=== PATIENT | female | born 1990 | race Caucasian/White ===

== ENCOUNTER 2018-03-02 15:12 | Inpatient (IN) | payer OTHER ==
[~2018-03-02] VITALS: Ht 165.1 cm; Wt 79.4 kg
[~2018-03-02 15:12] MED LIST: CYCLOBENZAPRINE10 MG ORAL; IBUPROFEN600 MG ORAL
[2018-03-02 15:20] VITALS: BP 117/76
--- NOTE | 2018-03-02 15:45 | Emergency Room Report ---
History of Present Illness General Chief Complaint: Nausea, Vomiting, and Diarrhea Source: Patient Present Illness HPI The patient presents with uncontrolled vomiting since 4 AM. She is unable to keep down any water until just hour ago where she is able to keep down sips of water. She took 2 doses of Zofran at 10:00. She has muscle aches at this time. She she rates that pain at 9/10 whereas her abdomen is 6/10. She doesn' t believe this is related to her ulcerative colitis. She is due for a dose of Remicade on Saturday. This usually doesn't happen to her related to her ulcerative colitis. She's been passing watery diarrhea without any blood. She' s not vomiting any blood. The abdominal pain is crampy. LNMP normal. No fevers, chills. She denies any dysuria or discharge. She states her last period was normal slightly greater than 3 weeks ago. No recent travel, ill contacts (that she is aware of). Rapid heart rate she states due to treatment of depression and anxiety. Allergies: Coded Allergies: METOCLOPRAMIDE (Verified Allergy, Unknown, 07/15/16) PENICILLIN G (Verified Allergy, Unknown, 07/15/16) Patient History Past Medical History: see triage record Social History: Denies: smoking, alcohol use, drug use Social History Narrative employed Last Menstrual Period: 02/12 Now: No Reviewed Nursing Documentation: PMH: Agreed; PSxH: Agreed Nursing Documentation-PMH Past Medical History: No History, Except For Hx Gastrointestinal Problems: Yes - UC Review of Systems All Other Systems: negative except mentioned in HPI Physical Exam Vital Signs Date Time Temp Pulse Resp B/P (MAP) Pulse Ox O2 Delivery O2 Flow Rate FiO2 03/02/18 15:21 98.6 110 19 119/76 96 Room Air 98.6 Sp02 EP Interpretation: reviewed, normal General Appearance: well appearing, GCS 15, other - feels like she has to vomit Head: normocephalic Eyes: bilateral eye normal inspection ENT: moist mucus membranes Neck: supple Respiratory: lungs clear, normal breath sounds Cardiovascular #1: regular rate, rhythm, tachycardia Cardiovascular #2: 2+ radial (R) Gastrointestinal: normal inspection, normal bowel sounds, non tender, no mass, non-distended Musculoskeletal: back normal, gait/station normal, normal range of motion Neurologic: alert, oriented x3, grossly normal Psychiatric: anxious Skin: normal inspection, no rash, warm/dry Medical Decision Making Diagnostic Impression: Primary Impression: Nausea, vomiting, and diarrhea Additional Impressions: Gastroenteritis H/O ulcerative colitis Adverse reaction to compazine Tachycardia ER Course The patient presents with vomiting and muscle aches and diarrhea. She feels is not related to her ulcerative colitis. Differential includes exacerbation of colitis, gastroenteritis, viral syndrome, diverticulitis amongst others. We do need to exclude urinary tract infection. The patient will be evaluated with labs. No imaging is indicated at the moment. If she has leukocytosis we might need to perform imaging. She'll be treated with a dose of Zofran, Pepcid and also Toradol. Tachycardia suggests volume depletion. Still severe pain in body. States abdomen not with sig pain. No guard or rebound. Toradol repeated. Still tachycardic. Aggressive fluids IV. Still severe pain, morphine given. Pain greatly improved with morphine. Nausea return. Compazine given with Benadryl. Feels like dying with anxiety. Ativan given. Abdomen benign. Ativan repeated. Mom states she is "incoherent". Patient wants to go home. Discussed with friends and patient (she would have to go home with them). Uncertain of ability to observe. Admit med/observation Dr. Lebron. Laboratory Tests Test 03/02/18 15:44 03/02/18 16:34 White Blood Count 10.5 K/UL (4.8-10.8) Red Blood Count 4.49 M/UL (4.20-5.40) Hemoglobin 13.0 G/DL (12.0-16.0) Hematocrit 38.7 % (37.0-47.0) Mean Corpuscular Volume 86 FL (80-99) Mean Corpuscular Hemoglobin 29.0 PG (27.0-31.0) Mean Corpuscular Hemoglobin Concent 33.7 G/DL (32.0-36.0) Red Cell Distribution Width 10.5 % (11.6-14.8) L Platelet Count 307 K/UL (150-450) Mean Platelet Volume 7.1 FL (6.5-10.1) Neutrophils (%) (Auto) 91.1 % (45.0-75.0) H Lymphocytes (%) (Auto) 5.4 % (20.0-45.0) L Monocytes (%) (Auto) 2.8 % (1.0-10.0) Eosinophils (%) (Auto) 0.1 % (0.0-3.0) Basophils (%) (Auto) 0.6 % (0.0-2.0) Sodium Level 138 MMOL/L (136-145) Potassium Level 3.5 MMOL/L (3.5-5.1) Chloride Level 103 MMOL/L (98-107) Carbon Dioxide Level 25 MMOL/L (21-32) Anion Gap 10 mmol/L (5-15) Blood Urea Nitrogen 11 mg/dL (7-18) Creatinine 0.6 MG/DL (0.55-1.30) Estimate Glomerular Filtration Rate > 60 mL/min (>60) Glucose Level 104 MG/DL (74-106) Calcium Level 8.8 MG/DL (8.5-10.1) Total Bilirubin 0.5 MG/DL (0.2-1.0) Aspartate Amino Transferase (AST) 27 U/L (15-37) Alanine Aminotransferase (ALT) 57 U/L (12-78) Alkaline Phosphatase 87 U/L (46-116) Total Protein 7.7 G/DL (6.4-8.2) Albumin 3.9 G/DL (3.4-5.0) Globulin 3.8 g/dL Albumin/Globulin Ratio 1.0 (1.0-2.7) Lipase 129 U/L (73-393) Urine Color Pale yellow Urine Appearance Clear Urine pH 6 (4.5-8.0) Urine Specific [place] 1.010 (1.005-1.035) Urine Protein Negative (NEGATIVE) Urine Glucose (UA) Negative (NEGATIVE) Urine Ketones Negative (NEGATIVE) Urine Occult Blood Negative (NEGATIVE) Urine Nitrite Negative (NEGATIVE) Urine Bilirubin Negative (NEGATIVE) Urine Urobilinogen Normal MG/DL (0.0-1.0) Urine Leukocyte Esterase Negative (NEGATIVE) Urine HCG, Qualitative Negative (NEGATIVE) Rhythm Strip Diag. Results EP Interpretation: yes Rhythm: no PVC's, no ectopy, other - tachy Last Vital Signs Date Time Temp Pulse Resp B/P (MAP) Pulse Ox O2 Delivery O2 Flow Rate FiO2 03/02/18 23:50 98.0 112 18 118/78 98 Room Air 98.0 Status: improved Disposition: ADMITTED INPATIENT Condition: Serious Akshat Lyles M.D. March 02, 2018 15:45
[2018-03-02] MEDS ORDERED: Ketorolac 30mg Inj IV ONE ×2 (16:00→18:00)
[2018-03-02 16:01] LABS: HEMATOCRIT 38.7 % (37.0-47.0); MEAN CORPUSCULAR VOLUME 86 FL (80-99); PLATELET COUNT 307 K/UL (150-450); RED BLOOD COUNT 4.49 M/UL (4.20-5.40); RED CELL DISTRIBUTION WIDTH 10.5 % (11.6-14.8); WHITE BLOOD COUNT 10.5 K/UL (4.8-10.8)
[2018-03-02 16:02] LABS: BASOPHILS % (AUTO) 0.6 % (0.0-2.0); EOSINOPHILS % (AUTO) 0.1 % (0.0-3.0); LYMPHOCYTES % (AUTO) 5.4 % (20.0-45.0); MONOCYTES % (AUTO) 2.8 % (1.0-10.0); NEUTROPHILS % (AUTO) 91.1 % (45.0-75.0)
[2018-03-02 16:09] LABS: ANION GAP 10 mmol/L (5-15); BLOOD UREA NITROGEN 11 mg/dL (7-18); CALCIUM 8.8 MG/DL (8.5-10.1); CARBON DIOXIDE 25 MMOL/L (21-32); CHLORIDE 103 MMOL/L (98-107); CREATININE 0.6 MG/DL (0.55-1.30); POTASSIUM 3.5 MMOL/L (3.5-5.1); SODIUM 138 MMOL/L (136-145)
[2018-03-02 16:14] LABS: ALANINE AMINOTRANSFERASE 57 U/L (12-78); ALBUMIN 3.9 G/DL (3.4-5.0); ALKALINE PHOSPHATASE 87 U/L (46-116); ASPARTATE AMINO TRANSFERASE 27 U/L (15-37); BILIRUBIN,TOTAL 0.5 MG/DL (0.2-1.0)
[2018-03-02 16:39] LABS: APPEARANCE,URINE CLEAR; BILIRUBIN, URINE NEGATIVE (NEGATIVE); COLOR,URINE PALE YELLOW; GLUCOSE, URINE (UA) NEGATIVE (NEGATIVE); KETONES,URINE NEGATIVE (NEGATIVE); LEUKOCYTE ESTERASE ,URINE NEGATIVE (NEGATIVE); NITRITE,URINE NEGATIVE (NEGATIVE); PH,URINE 6 (4.5-8.0); PROTEIN,URINE NEGATIVE (NEGATIVE); UROBILINOGEN,URINE NORMAL MG/DL (0.0-1.0)
[2018-03-02] MEDS ORDERED: Morphine Sulfate 4mg/ml Inj IVP ONE (18:00)
[2018-03-02] MEDS ORDERED: DiphenhydrAMINE 50mg/ml Inj IVP ONE (18:45)
[2018-03-02] MEDS ORDERED: LORazepam Inj 2mg/ml 1ml IV ONE ×2 (19:45→20:45)
[2018-03-02 20:56] VITALS: BP 122/80
[2018-03-02] MEDS ORDERED: VENLAFAXINE HCL25 MG ORAL (22:13)
[2018-03-02] MEDS ORDERED: ZOFRAN4 M3 ORAL (22:13)
[2018-03-02] MEDS ORDERED: ZYRTEC10 MG ORAL (22:13)
[2018-03-02] MEDS ORDERED: LAMICTAL25 MG ORAL (22:13)
[2018-03-02 23:39] VITALS: BP 118/78
[2018-03-03] VITALS: BP 120/76
[2018-03-03] MEDS ORDERED: LORAZEPAM1 MG ORAL (01:28)
[2018-03-03] MEDS ORDERED: CLONAZEPAM1 M1 PO (01:30)
[2018-03-03] MEDS ORDERED: DICYCLOMINE HCL10 MG PO (01:35)
[2018-03-03] MEDS ORDERED: PROPRANOLOL HCL10 MG ORAL (01:37)
[2018-03-03] MEDS ORDERED: D5 1/2NS 1,000 ML IV SCH (03:04)
[2018-03-03] MEDS ORDERED: Mylanta II UD 30ml ORAL PRN (03:15)
[2018-03-03] MEDS ORDERED: Nitroglycerin Subl 0.4mg tab SL PRN (03:15)
[2018-03-03] MEDS ORDERED: Promethazine HCl 12.5 MG in NS 55 ML IV PRN (03:15)
[2018-03-03] MEDS ORDERED: LORazepam Inj 2mg/ml 1ml IV PRN (03:15)
[2018-03-03] MEDS ORDERED: Miralax 17gm pkt ORAL PRN (03:15)
[2018-03-03] MEDS ORDERED: Promethazine HCl 25 MG in NS 55 ML IV PRN (03:15)
[2018-03-03] MEDS ORDERED: Propranolol 10mg tab ORAL PRN (03:15)
[2018-03-03 04:00] VITALS: BP 130/73
[2018-03-03] MEDS ORDERED: Venlafaxine HCl 37.5mg Tab ORAL SCH ×2 (06:15→21:00)
[2018-03-03 08:00] VITALS: BP 125/75
[2018-03-03] MEDS ORDERED: Venlafaxine XR 37.5mg cap ORAL ONE (08:00)
[2018-03-03] MEDS: Cyclobenzaprine 10mg Tab ORAL SCH ×4 (08:24→13:08)
[2018-03-03] MEDS ORDERED: Heparin 5000 units/ml inj SUBQ SCH (09:00)
[2018-03-03] MEDS ORDERED: Pantoprazole Inj IV SCH (09:00)
[2018-03-03] MEDS ORDERED: D5 1/2NS 1000ml IV ONE (10:09)
--- NOTE | 2018-03-03 10:55 | GI Initial Consult Note ---
History of Present Illness General Date patient seen: March 03, 2018 Time patient seen: 10:49 Reason for Hospitalization: Nausea, Vomiting, and Diarrhea Referring physician: AMBAR MOHAMUD Reason for Consultation: ULCERATIVE COLITIS Present Illness HPI The patient presents with uncontrolled vomiting since 4 AM. She is unable to keep down any water until just hour ago where she is able to keep down sips of water. She took 2 doses of Zofran at 10:00. She has muscle aches at this time. She she rates that pain at 9/10 whereas her abdomen is 6/10. She doesn' t believe this is related to her ulcerative colitis. She is due for a dose of Remicade on Saturday. This usually doesn't happen to her related to her ulcerative colitis. She's been passing watery diarrhea without any blood. She' s not vomiting any blood. The abdominal pain is crampy. LNMP normal. No fevers, chills. She denies any dysuria or discharge. She states her last period was normal slightly greater than 3 weeks ago. No recent travel, ill contacts (that she is aware of). Rapid heart rate she states due to treatment of depression and anxiety. GI consulted for N/V/D r/o UC flare. Pt seen, awake A&Ox4 NAD with no active s /sx of N/V/D. Patient reports her symptoms have resolved, diet advanced this morning. Denies any abdominal pain. Patient has a history of Ulcerative colitis, where she takes Remicade infusions q8 weeks at [facility]. Her next dose was scheduled for today. Patient does not believe it was an Ulcerative Flare and wishes to be discharge today. Home Meds Active Scripts Cyclobenzaprine Hcl* (FLEXERIL*) 10 Mg Tablet, 10 MG ORAL THREE TIMES A DAY, # 12 TAB Prov:TERZIAN,NANI P.A. 07/15/16 Ibuprofen* (MOTRIN*) 600 Mg Tablet, 600 MG ORAL Q8H PRN for For Pain, #30 TAB 0 Refills Prov:TERZIAN,NANI P.A. 07/15/16 Reported Medications Propranolol Hcl* (INDERAL*) 10 Mg Tablet, 10 MG ORAL THREE TIMES A DAY PRN for For Anxiety, TAB 0 Refills 03/03/18 Dicyclomine Hcl* (DICYCLOMINE HCL*) 10 Mg Capsule, 10 MG PO Q8HR PRN for Abdominal cramps, CAP 03/03/18 Clonazepam (CLONAZEPAM) 1 Mg Tab.rapdis, 1 MG PO BEDTIME PRN for For Anxiety, TAB 03/03/18 Lorazepam* (LORAZEPAM*) 1 Mg Tablet, 1 MG ORAL BEDTIME PRN for For Anxiety, TAB 03/03/18 Cetirizine Hcl* (ZYRTEC*) 10 Mg Tablet, ORAL DAILY, #30 TAB 0 Refills 03/02/18 Ondansetron* (ZOFRAN*) 4 Mg Tablet, ORAL Q6H PRN for Nausea & Vomiting, TAB 03/02/18 Venlafaxine Hcl* (EFFEXOR*) 25 Mg Tablet, ORAL THREE TIMES A DAY, TAB 03/02/18 Lamotrigine* (LAMICTAL*) 25 Mg Tablet, ORAL DAILY, #30 TAB 0 Refills 03/02/18 Med list reviewed/reconciled: Yes Allergies: Coded Allergies: METOCLOPRAMIDE (Verified Allergy, Unknown, 07/15/16) PENICILLIN G (Verified Allergy, Unknown, 07/15/16) Patient History History Provided By: Patient PMH Narrative Past Medical History: see triage record Social History: Denies: smoking, alcohol use, drug use Social History Narrative employed Last Menstrual Period: 02/12 Now: No Reviewed Nursing Documentation: PMH: Agreed; PSxH: Agreed Nursing Documentation-PM Past Medical History: No History, Except For Hx Gastrointestinal Problems: Yes - Social History: Denies: smoking, alcohol use, drug use, other Review of Systems All Other Systems: negative except mentioned in HPI Physical Exam Vital Signs Date Time Temp Pulse Resp B/P (MAP) Pulse Ox O2 Delivery O2 Flow Rate FiO2 03/02/18 15:20 98.6 98 20 117/76 99 Room Air 98.6 Sp02 EP Interpretation: reviewed, normal Labs Laboratory Tests Test 03/02/18 15:44 03/02/18 16:34 White Blood Count 10.5 K/UL (4.8-10.8) Red Blood Count 4.49 M/UL (4.20-5.40) Hemoglobin 13.0 G/DL (12.0-16.0) Hematocrit 38.7 % (37.0-47.0) Mean Corpuscular Volume 86 FL (80-99) Mean Corpuscular Hemoglobin 29.0 PG (27.0-31.0) Mean Corpuscular Hemoglobin Concent 33.7 G/DL (32.0-36.0) Red Cell Distribution Width 10.5 % (11.6-14.8) L Platelet Count 307 K/UL (150-450) Mean Platelet Volume 7.1 FL (6.5-10.1) Neutrophils (%) (Auto) 91.1 % (45.0-75.0) H Lymphocytes (%) (Auto) 5.4 % (20.0-45.0) L Monocytes (%) (Auto) 2.8 % (1.0-10.0) Eosinophils (%) (Auto) 0.1 % (0.0-3.0) Basophils (%) (Auto) 0.6 % (0.0-2.0) Sodium Level 138 MMOL/L (136-145) Potassium Level 3.5 MMOL/L (3.5-5.1) Chloride Level 103 MMOL/L (98-107) Carbon Dioxide Level 25 MMOL/L (21-32) Anion Gap 10 mmol/L (5-15) Blood Urea Nitrogen 11 mg/dL (7-18) Creatinine 0.6 MG/DL (0.55-1.30) Estimat Glomerular Filtration Rate > 60 mL/min (>60) Glucose Level 104 MG/DL (74-106) Calcium Level 8.8 MG/DL (8.5-10.1) Total Bilirubin 0.5 MG/DL (0.2-1.0) Aspartate Amino Transf (AST/SGOT) 27 U/L (15-37) Alanine Aminotransferase (ALT/SGPT) 57 U/L (12-78) Alkaline Phosphatase 87 U/L (46-116) Total Protein 7.7 G/DL (6.4-8.2) Albumin 3.9 G/DL (3.4-5.0) Globulin 3.8 g/dL Albumin/Globulin Ratio 1.0 (1.0-2.7) Lipase 129 U/L (73-393) Urine Color Pale yellow Urine Appearance Clear Urine pH 6 (4.5-8.0) Urine Specific [place] 1.010 (1.005-1.035) Urine Protein Negative (NEGATIVE) Urine Glucose (UA) Negative (NEGATIVE) Urine Ketones Negative (NEGATIVE) Urine Occult Blood Negative (NEGATIVE) Urine Nitrite Negative (NEGATIVE) Urine Bilirubin Negative (NEGATIVE) Urine Urobilinogen Normal MG/DL (0.0-1.0) Urine Leukocyte Esterase Negative (NEGATIVE) Urine HCG, Qualitative Negative (NEGATIVE) General Appearance: well appearing, no apparent distress, alert Head: normocephalic EENT: PERRL/EOMI, normal ENT inspection Neck: supple Respiratory: normal breath sounds, no respiratory distress Cardiovascular: normal rate Gastrointestinal: normal inspection, non tender, soft, normal bowel sounds, non -distended Rectal: deferred Genitourinary: no CVA tenderness Musculoskeletal: normal inspection, back normal Neurologic: normal inspection, alert, oriented x3, responsive Psychiatric: normal inspection, judgement/insight normal, memory normal Skin: normal inspection, normal color, no rash, warm/dry, palpation normal, well hydrated Lymphatic: normal inspection, no adenopathy Current Medications Current Medications Medications (Trade) Dose Ordered Sig/Sammi Route PRN Reason Start Time Stop Time Status Last Admin Dose Admin Acetaminophen (Tylenol) 650 mg Q4H PRN ORAL fever 03/03/18 03:15 04/02/18 03:14 Al Hydroxide/Mg Hydroxide (Mylanta II) 30 ml Q6H PRN ORAL dyspepsia 03/03/18 03:15 04/02/18 03:14 Cyclobenzaprine HCl (Flexeril) 10 mg THREE TIMES A DAY ORAL 03/03/18 09:00 04/02/18 08:59 03/03/18 08:24 Dextrose (Dextrose 50%) STAT PRN IV Hypoglycemia 03/03/18 03:15 04/02/18 03:14 Dextrose/Sodium Chloride 1,000 ml @ 75 mls/hr [id number] IV 03/03/18 03:04 04/02/18 03:03 03/03/18 03:32 Diphenhydramine HCl (Benadryl) 25 mg Q6H PRN ORAL Itching/Pruritis 03/03/18 03:15 04/02/18 03:14 Heparin Sodium (Porcine) (Heparin 5000 units/ml) 5,000 units EVERY 12 HOURS SUBQ 03/03/18 09:00 04/02/18 08:59 03/03/18 08:23 Lamotrigine (LaMICtal) 25 mg DAILY ORAL 03/03/18 09:00 04/02/18 08:59 03/03/18 08:20 Lorazepam (Ativan 2mg/ml 1ml) 1 mg Q4H PRN IV agitation 03/03/18 03:15 03/10/18 03:14 Nitroglycerin (Ntg) 0.4 mg Q5M X 3 DOSES PRN SL Prn Chest Pain 03/03/18 03:15 04/02/18 03:14 Ondansetron HCl (Zofran) 4 mg Q6H PRN IVP Nausea & Vomiting 03/03/18 03:15 04/02/18 03:14 Pantoprazole (Protonix) 40 mg DAILY IV 03/03/18 09:00 04/02/18 08:59 03/03/18 08:23 Polyethylene Glycol (Miralax) 17 gm HSPRN PRN ORAL Constipation 03/03/18 03:15 04/02/18 03:14 Promethazine HCl 12.5 mg/Sodium Chloride 55.5 ml @ 110 mls/hr Q6H PRN IV Refractory N/V 03/03/18 03:15 04/02/18 03:14 Promethazine HCl 25 mg/Sodium Chloride 56 ml @ 110 mls/hr Q6H PRN IV Refractory N/V 03/03/18 03:15 04/02/18 03:14 Propranolol HCl (Inderal) 10 mg THREE TIMES A DAY PRN ORAL For Anxiety 03/03/18 03:15 04/02/18 03:14 Temazepam (Restoril) 15 mg HSPRN PRN ORAL Insomnia 03/03/18 03:15 03/10/18 03:14 Venlafaxine HCl (Effexor-XR) 112.5 mg BEDTIME ORAL 03/03/18 21:00 04/02/18 20:59 GI: Plan Problems: (1) Gastroenteritis (2) H/O ulcerative colitis (3) Nausea, vomiting, and diarrhea (4) Dehydration Plan advance to regular diet today, okay for DC per GI standpoint if tolerates diet most likely patient did not have an UC flare, will order CRP, ESR if still inpatient tomorrow. zofran prn pain mgmt electrolyte replacement patient to follow up with primary GI doctor at [facility] and reschedule Remicade infusion. d/w plan of care with patient fu labs Discussed with Dr. Black. Thank you for this patient referral, we will follow. Alejandra Guevara N.P. March 03, 2018 10:55
[2018-03-03 12:00] VITALS: BP 131/71
[2018-03-03] MEDS ORDERED: Venlafaxine XR 37.5mg cap ORAL SCH (21:00)
--- NOTE | 2018-03-03 22:30 | History and Physical Report ---
DATE OF ADMISSION: 03/02/2018 CONSULTANTS: 1. Doc Black M.D. 2. Vera Mo M.D. CHIEF COMPLAINT: Nausea and vomiting. BRIEF HISTORY: The patient is a 27-year-old female, who lives at home, presents with one-day of increased nausea and vomiting, diagnosed with acute gastroenteritis, admitted to medical floor for further treatment. Currently feeling better, ate okay, wants to go home. REVIEW OF SYSTEMS: No chest pain. No shortness of breath. Slight nausea and vomiting, but much improved now. No diarrhea. PAST MEDICAL HISTORY: Ulcerative colitis. PAST SURGICAL HISTORY: None. MEDICATIONS: Effexor, Flexeril, heparin, Protonix, Lamictal, Inderal, Tylenol, MiraLAX, Restoril, Zofran, and promethazine. ALLERGIES: Penicillin and Reglan. SOCIAL HISTORY: No smoking. No alcohol. No intravenous drug abuse. FAMILY HISTORY: Noncontributory. PHYSICAL EXAMINATION: GENERAL: Calm in bed, oriented x3, in no acute distress. VITAL SIGNS: Temperature is 97, pulse 107, respirations 18, and blood pressure 131/71. CARDIOVASCULAR: No murmurs. LUNGS: Poor air exchange. ABDOMEN: Bowel sounds positive. Nontender and nondistended EXTREMITIES: No cyanosis, clubbing, or edema. NEUROLOGIC: The patient moves all extremities, slightly weak. LABORATORY DATA: Labs at this time show CBC is normal. BMP is normal. Urinalysis is negative. ASSESSMENT: , nausea, vomiting, ulcerative colitis. PLAN: 1. Continue previous medications. 2. IV fluid p.r.n. 3. Advance diet as tolerated. 4. We will discharge if the patient cleared by GI. 5. We will continue to follow the patient medically. Masoud Lebron D.O. DR: ROBERTO JOB#: [id number] CC:
--- NOTE | 2018-03-05 08:59 | Discharge Summary ---
Discharge Summary Discharge Summary Discharge Summary DATE OF ADMISSION: 03/02/2018 DATE OF DISCHARGE: 03/03/2018 REASON FOR ADMISSION: 27 years old female with a history of ulcerative colitis and Mn[place] disease , presented with uncontrolled nausea , vomiting and diarrhea and crampy abdominal pain of moderate intensity. Patient reported uncontrolled vomiting, unable to keep fluids down. Patient took Zofran at home without much relief. Patient reported watery diarrhea, no blood. No hematemesis. Patient has scheduled Remicade infusion for next week. Upon evaluation heart rate 110. WBC 10.5 ,stable hemoglobin and hematocrit, stable electrolytes, LFT and lipase within normal limits. Urinalysis negative. EKG revealed sinus tachycardia no acute ischemic changes. Urine test was negative. Patient started on the IV fluids for volume depletion to correct tachycardia. Zofran ,Pepcid ,and Toradol given .Patient was admitted with diagnosis of nausea, vomiting,diarrhea; dehydration; gastroenteritis; history of ulcerative colitis. CONSULTANTS: GI specialist Dr. Black [facility] [employer] [facility]SE: Patient was admitted. Patient started on the IV fluids. Pain management provided . Antiemetics provided as needed. Diet slowly advanced as tolerated. GI consult was requested. Per GI evaluation, patient likely had a case of gastroenteritis, not related to ulcerative colitis. Doubted ulcerative colitis flare, given no leukocytosis, no hematochezia, hematemesis, no significant abdominal pain. Patient was able to tolerate diet . Nausea and vomiting controlled. Diarrhea subsided. GI specialist cleared patient for discharge with outpatient follow-up with a GI for scheduled Remicade infusion. Due to rapid and unexpected improvement in patient's condition, the patient was discharged in one day. FINAL DIAGNOSES: Nausea vomiting and diarrhea -resolved Gastroenteritis History of ulcerated colitis Dehydration DISCHARGE MEDICATIONS: See Medication Reconciliation list. DISCHARGE INSTRUCTIONS: Patient was discharged home. Patient to follow-up with the GI specialist at [facility] for Remicade infusion. I have been assigned to dictate discharge summary for this account. I was not involved in the patient's management. Phylicia Singh NP ([place]) March 05, 2018 08:59
== END 2018-03-03 15:30 | disposition home or self-care (01) | DRG 392 ==
LOC: EMR 15:37 → EDBEDREQ 22:41 → 4W 23:13
DX: K52.9 Noninfective gastroenteritis and colitis, unspecified (principal); K51.90 Ulcerative colitis, unspecified, without complications; E86.0 Dehydration; R00.0 Tachycardia, unspecified; Z88.0 Allergy status to penicillin
CPT/HCPCS: 36415; 80053; 81003; 81025; 83690; 85025; 99285; J2405